=== PATIENT | female | born 2000 | race Caucasian/White ===

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

== ENCOUNTER 2018-05-26 16:12 | Emergency (ER) | payer SELFPAY, BC | END 2018-05-26 17:31 | disposition left against medical advice (07) | LOC: FTE 17:31 | DX: Z53.21 Procedure and treatment not carried out due to patient leaving prior to being seen by health care provider (principal) ==

== ENCOUNTER 2018-05-27 01:36 | Emergency (ER) | payer BC ==
[2018-05-27 03:24] LABS: URINE PH (Dip) POC 6.5 (5.0-8.5)
[2018-05-27 03:24] LABS: URINE BLOOD (Dip) POC Trace-intact (NEGATIVE); URINE GLUCOSE (Dip) POC Negative (NEGATIVE); URINE KETONES (Dip) POC Negative (NEGATIVE); URINE LEUKOCYTE EST (Dip) POC 1+ (NEGATIVE); URINE NITRITE (Dip) POC Negative (NEGATIVE); URINE TOTAL PROTEIN POC 1+ (NEGATIVE)
[2018-05-27] MEDS ORDERED: IBUPROFEN 800 MG TAB PO (03:30)
[2018-05-27] MEDS: KETOROLAC 15 MG INJ IM (04:01)
== END 2018-05-27 05:10 | disposition home or self-care (01) ==
LOC: FTE 01:36
DX: R10.2 Pelvic and perineal pain (principal); R40.2412 Glasgow coma scale score 13-15, at arrival to emergency department
CPT/HCPCS: 76830; 76856; 81003; 81025; 96372; 99285-25

== ENCOUNTER 2019-01-12 15:04 | Emergency (ER) | payer BC ==
[2019-01-12] MEDS: HYDROCODONE/APAP (5/325) TAB PO (17:08)
[2019-01-12] MEDS: ONDANSETRON (ODT) 4 MG TAB ODT (17:09)
[2019-01-12] MEDS: CEPHALEXIN 500 MG CAP PO (17:49)
[2019-01-12] MEDS: IBUPROFEN 600 MG TAB PO (17:49)
== END 2019-01-12 18:01 | disposition home or self-care (01) ==
LOC: FTE 18:01
DX: N30.00 Acute cystitis without hematuria (principal); N83.202 Unspecified ovarian cyst, left side
CPT/HCPCS: 76830; 76856; 81003; 81025; 87591; 99284-25